=== PATIENT | male | born 1975 | race Two or more races ===

== ENCOUNTER 2017-04-07 13:51 | Emergency (ER) | payer OTHER ==
[~2017-04-07] VITALS: Ht 188 cm; Wt 104.3 kg
[2017-04-07 14:07] VITALS: BP 122/86
[2017-04-07] MEDS ORDERED: cefTRIAXone SOD 1,000 MG VL IM ONE (14:30)
[2017-04-07] MEDS ORDERED: KETOROLAC TROMETH 60MG/2ML VIAL IM ONE (14:30)
== END 2017-04-07 14:55 | disposition home or self-care (01) ==
LOC: ER 13:51
DX: K04.7 Periapical abscess without sinus (principal); F17.210 Nicotine dependence, cigarettes, uncomplicated
CPT/HCPCS: 96372; 99284; J0696; J1885